=== PATIENT | female | born 1935 | race Caucasian/White ===

== ENCOUNTER 2018-01-12 09:50 | Outpatient (CLI) | payer MEDICARE, OTHER | END 2018-01-12 09:51 | disposition home or self-care (01) | LOC: BICMAMMO 09:50 | PROVIDERS: ATTEND Family Medicine | DX: Z12.31 Encounter for screening mammogram for malignant neoplasm of breast (principal); Z13.820 Encounter for screening for osteoporosis; M41.9 Scoliosis, unspecified; M47.896 Other spondylosis, lumbar region; Z78.0 Asymptomatic menopausal state | CPT/HCPCS: 77063; 77067; 77080 ==

== ENCOUNTER 2019-01-13 09:34 | Outpatient (CLI) | payer MEDICARE, OTHER ==
--- NOTE | 2019-01-17 13:25 | MMO ---
Bilateral MAMMO Bilat Screen [facility]. CLINICAL HISTORY: Patient is 83 years old and is seen for screening. The patient has no family history of breast cancer. The patient has no personal history of cancer. VIEWS: The views performed were: bilateral craniocaudal with tomosynthesis and bilateral mediolateral oblique with tomosynthesis. FILMS COMPARED: The present examination has been compared to prior imaging studies performed at [facility] on 11/06/1998, 11/08/1999, 11/12/2000, 11/17/2001, 11/11/2002, 11/22/2003, 12/05/2004, 12/11/2005, 12/14/2006, 12/17/2007, 12/19/2009, 12/23/2010, 12/29/2011, 12/30/2012, 01/03/2015, 01/07/2016, 01/08/2017 and 01/12/2018. MAMMOGRAM FINDINGS: There are scattered fibroglandular densities. Finding 1: There are vascular calcifications seen in both breasts. Finding 2: There is a stable round mass seen in the left breast. There are no suspicious masses, suspicious calcifications, or new areas of architectural distortion. IMPRESSION: THERE IS NO MAMMOGRAPHIC EVIDENCE OF MALIGNANCY. A ROUTINE FOLLOW-UP MAMMOGRAM IN 1 YEAR IS RECOMMENDED. THE RESULTS OF THIS EXAM WERE SENT TO THE PATIENT. ACR BI-RADS Category 2 - Benign finding MAMMOGRAPHY NOTE: 1. A negative mammogram report should not delay a biopsy if a dominant of clinically suspicious mass is present. 2. Approximately 10% to 15% of breast cancers are not detected by mammography. 3. Adenosis and dense breasts may obscure an underlying neoplasm.
== END 2019-01-13 09:35 | disposition home or self-care (01) ==
LOC: BICMAMMO 09:34
PROVIDERS: ATTEND Family Medicine
DX: Z12.31 Encounter for screening mammogram for malignant neoplasm of breast (principal)
CPT/HCPCS: 77063; 77067

== ENCOUNTER 2020-11-01 10:09 | Outpatient (CLI) | payer MEDICARE, OTHER | END 2020-11-01 10:10 | disposition home or self-care (01) | LOC: BICMAMMO 10:09 | PROVIDERS: ATTEND Family Medicine | DX: Z12.31 Encounter for screening mammogram for malignant neoplasm of breast (principal); M81.0 Age-related osteoporosis without current pathological fracture | CPT/HCPCS: 77063; 77067; 77080 ==

== ENCOUNTER 2020-11-29 10:42 | Emergency (ER) | payer MEDICARE, OTHER ==
[2020-11-29 11:13] LABS: #Eosinphils 0.2 thou/uL (0.0-0.7); #Lymphocytes 1.6 thou/uL (1.20-3.40); #Monocytes 0.5 thou/uL (0.11-0.59); #Neutrophils 4.6 thou/uL (1.40-6.50); %Basophils 0.3 % (0.0-1.0); %Eosinophils 2.9 % (0.0-10.0); %Lymphocytes 23.1 % (21.0-51.0); %Monocytes 6.7 % (0.0-10.0); Hemoglobin 13.7 g/dL (12.0-16.0); Mean Corpuscular HGB CONC 31.1 g/dL (32.0-36.0); Mean Corpuscular Hemoglobin 29.8 pg (27.0-31.0); Mean Corpuscular Volume 95.8 fL (78.0-98.0); Platelet Count 192 thou/uL (130-400); RBC Distribution Width 13.3 % (11.5-14.5); White Blood Cell (WBC) Count 6.9 thou/uL (4.8-10.8)
[2020-11-29 11:30] LABS: ALT (SGPT) 19 U/L (8-55); AST (SGOT) 26 U/L (5-34); Alkaline Phosphatase 55 U/L (40-110); Anion Gap 15 mmol/L (10-20); BUN (Urea Nitrogen) 17 mg/dL (9.8-20.1); Bilirubin, Total 0.7 mg/dL (0.2-1.2); Calc. Creatinine Clearance 0 mL/min (70-130); Calcium 9.1 mg/dL (7.8-10.44); Carbon Dioxide 24 mmol/L (23-31); Chloride 105 mmol/L (98-107); Globulin 3.3 g/dL (2.4-3.5); Glucose 134 mg/dL (83-110); Potassium 4.4 mmol/L (3.5-5.1); Protein, Total 7.3 g/dL (5.8-8.1); Sodium 140 mmol/L (136-145)
--- NOTE | 2020-11-29 11:37 | CT ---
CT HEAD WITHOUT CONTRAST: Date: 11/29/2020 INDICATION: Head trauma. No comparison. FINDINGS: Ventricles have normal size and position. There are mild chronic ischemic white matter changes. No ev idence of acute hemorrhage. No evidence of mass, edema, or acute infarct. Nonspecific lucency in the left thalamus may represent old lacunar infarct. Paranasal sinuses and mastoids are clear. No evidence of skull fracture. IMPRESSION: No acute abnormality identified. POS: [facility]
== END 2020-11-29 12:29 | disposition home or self-care (01) ==
LOC: ERS 10:42
DX: R55 Syncope and collapse (principal); I10 Essential (primary) hypertension; Z79.899 Other long term (current) drug therapy
CPT/HCPCS: 70450; 80053; 84484; 85025; 93005

== ENCOUNTER 2021-11-25 10:07 | Outpatient (CLI) | payer MEDICARE, OTHER | END 2021-11-25 10:08 | disposition home or self-care (01) | LOC: BICMAMMO 10:07 | PROVIDERS: ATTEND Family Medicine | DX: Z12.31 Encounter for screening mammogram for malignant neoplasm of breast (principal) | CPT/HCPCS: 77063; 77067 ==

== ENCOUNTER 2022-12-29 09:02 | Outpatient (CLI) | payer MEDICARE, OTHER | END 2022-12-29 09:03 | disposition home or self-care (01) | LOC: BICMAMMO 09:02 | PROVIDERS: ATTEND Family Medicine | DX: Z12.31 Encounter for screening mammogram for malignant neoplasm of breast (principal); Z13.820 Encounter for screening for osteoporosis | CPT/HCPCS: 77063; 77067; 77080 ==